=== PATIENT | female | born 2000 | race Hispanic/Latino ===

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

== ENCOUNTER 2019-02-28 21:53 | Day surgery (SDC) | payer OTHER ==
[2019-02-28 22:20] VITALS: BP 115/68; TEMP 99.1; BMI 28.8
[2019-02-28] MEDS ORDERED: Ondansetron PF 4 MG/2 ML Vial ONE (23:07)
[2019-02-28] MEDS ORDERED: Ondansetron PF 4 MG/2 ML Vial IVP SCH (23:15)
--- NOTE | 2019-03-01 01:37 | PRG ---
DATE OF SERVICE: 02/28/2019 PRIMARY UNITIZER: Dr. Dayan Mckeon. CHIEF COMPLAINT: Nausea, vomiting, and abdominal pain. HISTORY OF PRESENT ILLNESS: The patient is a 18-year-old, G2, P1 female with an intrauterine at 30 weeks' gestation, presenting with 1-day history of nausea with vomiting. The patient reports that she has been sick since about 8 o'clock this morning and has vomited five times over a 16-hour period. She reports that the vomiting is pretty violent and it causes her face to break out in a rash. She reports that she is having some upper abdominal pain that she describes as sharp and crampy. She reports that she has in the past had her abdomen get hard but she is no longer feeling it. The patient denies fever. Denies headache. Denies chest pain or shortness of breath. She does report that when she is lying down on her back, she feels heaviness, but it resolves with sitting up. She denies diarrhea or constipation. She denies hip problems, knee problems, or muscle weakness. Denies vaginal bleeding or leakage of fluid. Denies urinary urgency or frequency. The patient does report that there have been multiple sick contacts in her home, who had similar symptoms including her a couple days ago, who had a mild case and her [id number], who both were quite ill with nausea and vomiting. The patient was initially seen in [facility] and transferred to Labor and Delivery for evaluation. PAST MEDICAL HISTORY: Negative. PAST SURGICAL HISTORY: Cholecystectomy. SOCIAL HISTORY: Denies drug, alcohol, or tobacco use. ALLERGIES: NO KNOWN DRUG ALLERGIES. MEDICATIONS: vitamins. OB LABS: Blood type is O positive. Antibody screen is negative. VDRL is nonreactive. Hepatitis B surface antigen is negative. HIV is negative. GC chlamydia is negative. She is rubella immune. One-hour Glucola is 120. REVIEW OF SYSTEMS: Per HPI. PHYSICAL EXAMINATION: VITAL SIGNS: Blood pressure 115/68, heart rate of 90, respiratory rate of 18, saturating 100% on room air, and temperature 99.1. GENERAL: She appears to be in no acute distress. She does have a petechial rash on her face. She is alert, oriented, cooperative, and pleasant to interact with. HEENT: Head is normocephalic and atraumatic. LUNGS: Clear to auscultation bilaterally. HEART: Regular rate and rhythm. ABDOMEN: Has normoactive bowel sounds to auscultation. It is soft, nontender to palpation. EXTREMITIES: Nontender and nonedematous. : Has been deferred. Cervical exam is reported prior to transfer as closed. However, nursing staff repeated her cervical exam after about 4 hours from the initial exam at the transferring facility and cervix remains closed. heart tracing shows a baseline in the 140s with moderate long-term variability, positive 15 x 15 accelerations, no decelerations. The tocometer shows occasional contractions about every 10 to 15 minutes, not at all felt by the patient as the patient denies any contractions since arrival. LABORATORY DATA: Labs from the outside facility were reviewed. Labs show a white count of 12, hemoglobin 10.9, hematocrit 33, and platelets of 293,000. Glucose of 85, creatinine 0.7, BUN of 10, sodium of 141, and potassium of 3.8. The patient was given 2 L of IV fluids and 4 mg of IV Zofran. The patient was reporting she is feeling a lot better. ASSESSMENT AND PLAN: The patient is a 18-year-old multiparous female with an intrauterine at 30 weeks and a likely gastroenteritis, contracted from family members. The patient has been hydrated and has no lab abnormalities from the outlying facility. No evidence of labor. Has a reactive NST and reassuring heart tracing. She has been given labor precautions and discharged home with instructions to follow up with her primary OB as scheduled. Job ID: [id number]
== END 2019-02-28 23:40 | disposition home or self-care (01) ==
LOC: L&D/OP 21:53
PROVIDERS: ATTEND Student in an Organized Health Care Education/Training Program
DX: O21.2 Late vomiting of pregnancy (principal); O99.89 Other specified diseases and conditions complicating pregnancy, childbirth and the puerperium; R10.10 Upper abdominal pain, unspecified; Z3A.30 30 weeks gestation of pregnancy
CPT/HCPCS: 59025; 96375; 99283; J2405

== ENCOUNTER 2019-04-14 14:39 | Day surgery (SDC) | payer OTHER ==
[2019-04-14] MEDS ORDERED: hydrALAZINE 20 MG/ML VIAL SLOW IVP PRN (15:18)
[2019-04-14 15:36] VITALS: BMI 30.4
[2019-04-14 15:38] LABS: Amnisure Test No Membranes Rupture (No Rupture)
[2019-04-14 15:39] LABS: Amnisure Internal Control QC ACCEPTABLE (ACCEPTABLE)
--- NOTE | 2019-04-15 02:49 | SS ---
DATE OF ADMISSION: 04/14/2019 DATE OF DISCHARGE: 04/14/2019 REGULAR PHYSICIAN: Dayan Mckeon MD EVALUATING PHYSICIAN: Harvinder Dill MD CHIEF COMPLAINT: "Pelvic pressure, concern she might be leaking." HISTORY OF PRESENT ILLNESS: Ms. Gallardo is a 18-year-old G2, P1-0-0-1 with an estimated date of confinement of 05/06/2019, who presents complaining of pelvic pressure and intermittent contractions since yesterday. She also states she thinks she might be wet and maybe leaking fluid. She is concerned because in her first , she apparently had prolonged rupture of membranes. Her care has been with Dr. Mckeon without complications. PAST OBSTETRICAL HISTORY: Includes vaginal delivery at term reportedly after prolonged rupture of membranes. She states that her baby spent time in the NICU. PAST MEDICAL HISTORY: None. PAST SURGICAL HISTORY: Cholecystectomy. CURRENT MEDICATIONS: vitamins and iron. ALLERGIES: NO KNOWN ALLERGIES. SOCIAL HISTORY: Denies tobacco or alcohol use. PHYSICAL EXAMINATION: VITAL SIGNS: Vital signs are stable. She is afebrile. ABDOMEN: Soft, nontender, and gravid. Sterile speculum exam shows no leakage of fluid. No significant discharge. Her pelvic examination is 390 and -1 per the labor nurse. This is unchanged from her exam in the office with Dr. Mckeon, per the patient's report. heart rate tracing is stable. No significant regular uterine contractions were seen. AmniSure returns negative. ASSESSMENT: 1. 36-week intrauterine . 2. No evidence of ruptured membranes or active labor. PLAN: The patient will be dismissed to home. Labor precautions were reviewed with her in detail. She states she has an appointment with Dr. Mckeon this week. Job ID: [id number]
== END 2019-04-14 16:50 | disposition home health service (06) ==
LOC: L&D/OP 14:39
PROVIDERS: ATTEND Student in an Organized Health Care Education/Training Program
DX: O99.89 Other specified diseases and conditions complicating pregnancy, childbirth and the puerperium (principal); R10.2 Pelvic and perineal pain; Z3A.36 36 weeks gestation of pregnancy
CPT/HCPCS: 84112; 99284

== ENCOUNTER 2019-04-29 05:30 | Inpatient (IN) | payer OTHER ==
[2019-04-29] MEDS ORDERED: NS / Oxytocin 40 units/1000ml 1,000 ML IV PRN (05:49)
[2019-04-29] MEDS ORDERED: Diphenoxylate HCl/Atropine Tablet PO PRN (05:49)
[2019-04-29] MEDS ORDERED: Ondansetron PF 4 MG/2 ML Vial IVP PRN ×3 (05:49→13:28)
[2019-04-29] MEDS ORDERED: Methylergonovine 0.2 MG/ML VIAL IM PRN (05:49)
[2019-04-29] MEDS ORDERED: hydrALAZINE 20 MG/ML VIAL SLOW IVP PRN ×2 (05:49→13:28)
[2019-04-29] MEDS ORDERED: Misoprostol 200 MCG TAB PR PRN (05:49)
[2019-04-29] MEDS ORDERED: Butorphanol Tartrate 1 MG/ML VIAL SLOW IVP PRN (05:49)
[2019-04-29] MEDS ORDERED: Ibuprofen 800 MG TAB PO PRN (05:49)
[2019-04-29] MEDS ORDERED: NS w/ Oxytocin 10 units 500 ML IV SCH (05:49)
[2019-04-29] MEDS ORDERED: Acetaminophen 500 MG TAB PO PRN (05:49)
[2019-04-29] MEDS ORDERED: HYDROcodone/Acetaminophen 5/325 mg Tablet PO PRN ×2 (05:49→13:28)
[2019-04-29] MEDS ORDERED: Carboprost 250 MCG/ML AMP IM PRN (05:49)
[2019-04-29] MEDS ORDERED: Promethazine HCl 25 MG/ML VIAL IM PRN ×3 (05:49→13:28)
[2019-04-29] MEDS ORDERED: Lidocaine 1% (PF) 30 ML VIAL SC PRN (05:49)
[2019-04-29 05:56] VITALS: BMI 31.2
[2019-04-29] MEDS: Lactated Ringer's 1,000 ML IV SCH ×2 (06:10→09:21)
[2019-04-29 06:25] LABS: Hemoglobin 10.2 g/dL (12.0-16.0); Mean Corpuscular Hemoglobin 25.9 pg (25.0-35.0); Mean Corpuscular Volume 78.4 fL (78.0-98.0); Mean Platelet Volume 7.2 fL (7.4-10.4); Platelet Count 298 thou/uL (130-400); RBC Distribution Width 14.2 % (11.5-14.5); Red Blood Cell (RBC) Count 3.95 mill/uL (4.00-5.20); White Blood Cell (WBC) Count 10.8 thou/uL (4.8-10.8)
[2019-04-29] MEDS ORDERED: Fentanyl 4 mcg/Bup 0.1% Cadd 100 ML ONE (06:54)
[2019-04-29 07:05] LABS: HBSAg Index 0.26 S/CO (0-0.99); Hep B Surf Ag Non-Reactive S/CO (NonReactive); Syphilis Antibody Nonreactive (Nonreactive); Syphilis Antibody Index 0.04 S/CO (<1.00 Non-Reactive)
[2019-04-29] MEDS ORDERED: Lidocaine 1.5%/Epinephrine 1:200,000 5 ML AMPUL IJ ONE (08:48)
[2019-04-29] MEDS ORDERED: ePHEDrine/0.9% NaCl/PF SYRINGE 50 mg/10 ml SLOW IVP PRN (08:58)
[2019-04-29] MEDS ORDERED: Lactated Ringer's 500 ML IV PRN (08:58)
[2019-04-29] MEDS ORDERED: diphenhydrAMINE 50 MG/ML VIAL IVP PRN (08:58)
[2019-04-29] MEDS ORDERED: Acetaminophen 325 MG TAB PO PRN (08:58)
[2019-04-29] MEDS ORDERED: Naloxone HCl 0.4 mg/ml Vial IVP PRN ×2 (08:58)
[2019-04-29] MEDS ORDERED: Communication Order-Pharmacy FS SCH (09:00)
[2019-04-29] MEDS ORDERED: Fentanyl 4 mcg/Bupivacaine 0.1% Cassette 100 ML EPIDURAL SCH (09:00)
--- NOTE | 2019-04-29 09:41 | PDOC.LDHP ---
Labor and Delivery H&P Chief complaint: scheduled induction HPI: 18yo at 39w by LMP here for elective IOL. +painful ctx 03/01. No LOF VB Current gestational age (weeks): 39 Dating criteria: last menstrual period Grav: 2 Para: 1 Current complications: none Abnormal US findings: No Past Medical History: denies Current medications: pre- vitamins, iron Previous surgical history: cholecystectomy Allergies/Adverse Reactions: Allergies Allergy/AdvReac Type Severity Reaction Status Date / Time No Known Allergies Allergy Verified 02/28/19 22:14 Social history: none - Physical Exam Vital signs reviewed and normal: yes General: NAD Heart: RRR Lungs: CTAB Abdomen: gravid Extremeties: no edema FHT: category 1 [place] contractions every: 3min - Vaginal Exam cm dilated: 5 Effacement: 90% Station: -1 (arom clear) - OB Labs RH: positive Antibody Screen: negative HIV: negative RPR: negative HEPSAg: negative 1 hour GCT: negative GBS: negative Urine drug screen: negative Rubella: immune - Assessment L&D Assessment: elective induction at term - Plan Plan: admit to L&D, labor augmentation if indicated, informed consent obtained, anesthesia consult for pain management
[2019-04-29] MEDS ORDERED: NS / Oxytocin 40 units/1000ml 1,000 ML ONE (11:14)
--- NOTE | 2019-04-29 13:15 | PDOC.OPDEL ---
OB Operative/Delivery Note Delivery Dr/Surgeon: Linda Assist: n/a Pre-Delivery Diagnosis: elective induction Procedure/Post Delivery Dx: spontaneous vaginal delivery Weeks gestation: 39 Anesthesia: epidural - Findings A Sex: male - 1 min: 9 - 5 min: 9 - Additional Findings/Plan Placenta delivered: spontaneous Repaired Obstetrical Laceration: none Estimated blood loss: 100 Post delivery plan: routine recovery
[2019-04-29] MEDS ORDERED: diphenhydrAMINE 25 MG CAP PO PRN (13:28)
[2019-04-29] MEDS ORDERED: Milk Of Magnesia 30 ML UDCUP PO PRN (13:28)
[2019-04-29] MEDS ORDERED: Bisacodyl 10 MG SUPP PR PRN (13:28)
[2019-04-29] MEDS ORDERED: Lanolin Ointment 7 GM TUBE TOP PRN (13:28)
[2019-04-29] MEDS ORDERED: NS / Oxytocin 40 units/1000ml 1,000 ML IV SCH (13:28)
[2019-04-29] MEDS ORDERED: Adacel (T-DAP) 0.5 ML SYRINGE IM ONE (13:28)
[2019-04-29] MEDS ORDERED: Benzocaine-Menthol 82.5 ML CAN TOP PRN (13:28)
[2019-04-29] MEDS ORDERED: Preparation H Ointment 28 GM TUBE PR PRN (13:28)
[2019-04-29] MEDS: Ibuprofen 800 MG TAB PO SCH (15:42)
[2019-04-29] MEDS: Ferrous Sulfate 325 MG TAB PO SCH (16:03)
[2019-04-29] MEDS: Docusate Calcium (SURFAK) 240 MG CAP PO SCH (21:51)
[2019-04-30] MEDS: Ibuprofen 800 MG TAB PO SCH ×4 (00:23→21:35)
[2019-04-30 06:43] LABS: Hemoglobin 10.3 g/dL (12.0-16.0)
[2019-04-30] MEDS: Prenatal Vitamin 1 TAB PO SCH (08:54)
[2019-04-30] MEDS: Docusate Calcium (SURFAK) 240 MG CAP PO SCH ×2 (08:55→21:35)
[2019-04-30] MEDS: Ferrous Sulfate 325 MG TAB PO SCH ×2 (09:16→17:03)
--- NOTE | 2019-04-30 10:56 | PDOC.PP ---
Post Progress Note Post Day #: 1 PO intake tolerated: yes Flatus: yes Ambulation: yes Vital Signs (12 hours) Temp Pulse Resp BP Pulse Ox 04/30/19 08:00 97.7 F 63 15 108/52 L 99 04/30/19 03:50 97.8 F 58 L 18 114/74 04/30/19 00:20 98.0 F 66 18 109/62 Weight Weight 188 lb - Physical Examination General: NAD Respiratory: non-labored breathing Abdominal: no distention, appropriately TTP Skin: no rash Neurological: no gross focal deficits Psychiatric: normal affect Result Diagrams: 04/30/19 06:05 Additional Labs: Post Labs Blood Type O POSITIVE 04/29/19 06:13 Hep Bs Antigen Non-Reactive S/CO (NonReactive) 04/29/19 06:13
[2019-04-30] MEDS: HYDROcodone/Acetaminophen 5/325 mg Tablet PO PRN ×2 (12:11→19:17)
[2019-05-01] MEDS: Ibuprofen 800 MG TAB PO SCH (06:01)
[2019-05-01 08:29] VITALS: BP 111/55; TEMP 98.2
[2019-05-01] MEDS: Prenatal Vitamin 1 TAB PO SCH (08:47)
[2019-05-01] MEDS: Docusate Calcium (SURFAK) 240 MG CAP PO SCH (08:47)
[2019-05-01] MEDS: Ferrous Sulfate 325 MG TAB PO SCH (09:09)
--- NOTE | 2019-05-01 09:24 | PDOC.PP ---
Post Progress Note Post Day #: 2 PO intake tolerated: yes Flatus: yes Ambulation: yes Vital Signs (12 hours) Temp Pulse Resp BP Pulse Ox 05/01/19 08:28 98.2 F 93 20 111/55 L 96 05/01/19 08:00 98 05/01/19 03:28 98.0 F 69 16 118/71 98 04/30/19 23:25 97.6 F 77 16 125/77 98 Weight Weight 188 lb - Physical Examination General: NAD Respiratory: non-labored breathing Abdominal: no distention, appropriately TTP Fundus firm & at: umb-2 Neurological: no gross focal deficits Psychiatric: normal affect Result Diagrams: 04/30/19 06:05 Additional Labs: Post Labs Blood Type O POSITIVE 04/29/19 06:13 Hep Bs Antigen Non-Reactive S/CO (NonReactive) 04/29/19 06:13 - Assessment/Plan PPD2 s/p TSVD VSSAF Doing well Breastpumping Rh pos RImm DC home FU 6w
== END 2019-05-01 10:40 | disposition home or self-care (01) | DRG 807 ==
LOC: L&D 05:30 → 3SW 15:29
PROVIDERS: ADMIT Student in an Organized Health Care Education/Training Program; ATTEND Student in an Organized Health Care Education/Training Program
PROC: 10E0XZZ Delivery of Products of Conception, External Approach (ICD-10-PCS; principal; 2019-04-30)
PROC: 3E033VJ Introduction of Other Hormone into Peripheral Vein, Percutaneous Approach (ICD-10-PCS; 2019-04-30)
DX: O80 Encounter for full-term uncomplicated delivery (principal); Z37.0 Single live birth; Z3A.39 39 weeks gestation of pregnancy
CPT/HCPCS: 36415; 51702; 85014; 85018; 85027; 86780; 86850; 86900; 86901; 87340; J2405; J2590; J3490